=== PATIENT | male | born 1945 | race Caucasian/White ===

== ENCOUNTER → 2023-12-13 06:30 | Day surgery (SDC) | payer MEDICARE, SELFPAY | LOC: GI 06:30 | PROVIDERS: ATTENDING PHYSICIAN Internal Medicine Gastroenterology | DX: Z12.11 Encounter for screening for malignant neoplasm of colon (principal); D12.3 Benign neoplasm of transverse colon; K57.30 Diverticulosis of large intestine without perforation or abscess without bleeding; K64.8 Other hemorrhoids | CPT/HCPCS: 45385; 88305 ==

== ENCOUNTER 2023-12-28 11:54 | Emergency (ER) | payer MEDICARE, SELFPAY ==
[2023-12-28 12:01] VITALS: BP 161/93
--- NOTE | 2023-12-28 12:34 | ED.MUSCINJ ---
HPI-Injury
General
Chief Complaint: Musculo-Skeletal Complaint
Source: patient
Exam Limitations: none
Time Seen by Provider: 12/28/23 12:16
Travel History
Have you had any contact with someone who has COVID-19?: No
Do you have any symptoms of coronavirus? Fever > 100 degrees, chills, cough, shortness of breath, sore throat, loss of taste or smell, muscle aches, or headache?: No
History of Present Illness-Injury
Initial Injury comments:
78-year-old male not anticoagulated presents complaining of right knee discomfort after tripping and falling on his right knee getting out of bed. He did not hit his head no other injuries. No other complaints at this time
Past History
Past History
ED Past Medical History: Cancer (Prostate) and GERD; Negative CVA, HTN, Hypercholesterolemia, NIDDM, [place] or Hypothyroidism
ED Past Surgical History: Urological and Other (Hernia repair)
Social History
Tobacco: Non-smoker
Alcohol: Occasional
Personal:
Living: with family
Employment: Retired
Family History
Family History: Other (Noncontributory)
Phy Exam
Physical Exam
Physical Exam:
General: Well-appearing male no acute distress
HEENT: Normocephalic atraumatic
Musculoskeletal exam: Right knee tender anteriorly. There is prepatellar swelling no break in the skin no deformity. He has ability straight leg raise flexion is beyond 90 degrees knee is stable without deformities
Neurologic: Alert normal gait
Injury Course
Orders/Labs/Results
Orders:
Orders
12/28/23 12:11
Knee, Right 4 or More Views [CR Knee- Right 4 Or More View*] Urgent
Comment:
Reason For Exam: pain after injury
MDM/Problems Addressed
Differential Diagnosis Includes:
Mechanical fall with right knee pain. Consider contusion versus hematoma versus fracture
I have personally visualized x-rays of the right knee which are negative for acute fracture or dislocation. I suspect hematoma of the skin or prepatellar bursa. There is no intra-articular effusion. Stable for discharge.
*Critical Care Note
Total Time (30-74mins, 75-104mins- exclusive of procedures): Not Applicable
ED Attending Note
-
Portions of this chart may have been created with voice recognition software.� Occasional wrong word or��sound alike� substitutions may have occurred due to the inherent limitations of voice recognition software.
Discharge Plan
Departure
Patient Disposition: Home (Routine Discharge)
Date of Disposition: 12/28/23
Time of Disposition: 12:36
Patient with high blood pressure during this ER visit?: No
Discharge Problem:
Contusion
Instructions: Contusion (DC)
Prescriptions:
No Action
Prozac: Capsule
30 mg PO DAILY
Patient Comments:
one 10 mg tablet and one 20 mg tablet
famotidine [Acid Controller] 20 MG tablet
20 mg PO DAILY
Referrals:
Andrea Hoffman MD [Family Provider] -
Activity Restrictions/Additional Instructions:
Ice for swelling. Use ibuprofen or Tylenol for pain if needed peer return if worse otherwise consider following up with orthopedist
Interventions
Interventions:
*Neglect/Abuse Screening Last Done: 12/28/23 12:38
*Nursing Disposition Last Done: 12/28/23 12:53
ED-Musculoskeletal Assessment Last Done: 12/28/23 12:38
Discharge Date and Time
Discharge Date/Time: 12/28/23 12:53
== END 2023-12-28 12:53 | disposition home or self-care (01) ==
LOC: EMR 11:54
PROVIDERS: EMERGENCY PHYSICIAN Emergency Medicine; FAMILY PHYSICIAN Family Medicine
DX: M25.561 Pain in right knee (principal); W01.0XXA Fall on same level from slipping, tripping and stumbling without subsequent striking against object, initial encounter; K21.9 Gastro-esophageal reflux disease without esophagitis
CPT/HCPCS: 99283; 73564

== ENCOUNTER → 2024-04-04 13:27 | Outpatient (REF) | payer MEDICARE, SELFPAY | LOC: RCS 13:27 | PROVIDERS: ATTENDING PHYSICIAN Internal Medicine Interventional Cardiology; FAMILY PHYSICIAN Family Medicine | DX: I10 Essential (primary) hypertension (principal); R06.09 Other forms of dyspnea | CPT/HCPCS: 93017; 93350 ==

== ENCOUNTER → 2024-08-01 10:01 | Outpatient (REF) | payer MEDICARE, SELFPAY | LOC: WDC 10:01 | PROVIDERS: ATTENDING PHYSICIAN Family Medicine | DX: N64.4 Mastodynia (principal) | CPT/HCPCS: 76642; 77062; 77066 ==

== ENCOUNTER 2025-08-24 08:35 | Emergency (ER) | payer MEDICARE, SELFPAY ==
[2025-08-24 08:39] VITALS: BP 170/83
[2025-08-24 09:04] VITALS: BMI 38.7
[2025-08-24 09:06] VITALS: BP 132/117
--- NOTE | 2025-08-24 09:32 | ED.GENMED ---
History of Present Illness
General
Chief Complaint: Heart Rate Problem
Source: patient and spouse
Exam Limitations: none
Time Seen by Provider: 08/24/25 09:00
Nursing documentation reviewed up to this point in time: agreed with
History of Present Illness
History of Present Illness:
79-year-old male presents with irregular heartbeat onset a few hours ago with a bed last night feeling fine drinks socially not excess non-smoker has prostate cancer no history of arrhythmia tells me he is always wonder if his thyroid is abnormal
because he has short eyebrows and he was told that this correlates with hypothyroid does have a family history of thyroid issues, describes some pressure into his neck, no nausea no vomiting no diaphoresis
Past History
Past History
ED Past Medical History: Cancer (Prostate) and GERD; Negative CVA, HTN, Hypercholesterolemia, NIDDM, [place] or Hypothyroidism
ED Past Surgical History: Urological and Other (Hernia repair)
Social History
Tobacco: Non-smoker
Alcohol: Occasional
Personal:
Living: with family
Employment: Retired
Family History
Family History: Other (Noncontributory)
Phy Exam
Physical Exam
Physical Exam:
Physical Exam
General: no apparent distress, not acutely ill
Neck: No goiter no stridor
Heart: s1/s2 regular rate and rhythm, no murmur. equal radial pulses.
Lungs: no acute respiratory distress. clear bilaterally
Abdomen: Nontender
Neuro: alert and oriented. no focal neurological deficits
Skin: no rash
Psychiatric: well kept. interactive and cooperative
Extremities: no edema. no calf tenderness.
Course
Orders/Labs/Results
Orders:
Orders
08/24/25 08:37
Electrocardiogram (*1) Urgent
Reason for Study: Tachycardia
EKG- Treatment ONCE
08/24/25 09:08
Electrocardiogram (*1) Stat
Reason for Study: Other
Other Reason for Exam: chest pain
Cardiac Monitoring- Treatment ONCE
EKG- Treatment ONCE
08/24/25 09:10
Complete Blood Count/With Diff Urgent
Comprehensive Metabolic Panel Urgent
Magnesium Urgent
TSH Urgent
Troponin I Urgent
08/24/25 11:22
Troponin I Urgent
Abnormal Lab Results
08/24/25
09:10
MPV 10.5 H fL
(7.4-10.4)
08/24/25 09:10
08/24/25 09:10
Vital Signs
Initial and Last Documented VS:
Initial Vital Signs
Temp Pulse Resp BP Pulse Ox
97.7 F 66 18 170/83 99
08/24/25 08:39 08/24/25 08:39 08/24/25 08:39 08/24/25 08:39 08/24/25 08:39
Last Documented Vital Signs
Temp Pulse Resp BP Pulse Ox
97.7 F 56 14 144/84 97
08/24/25 08:39 08/24/25 10:00 08/24/25 10:00 08/24/25 10:00 08/24/25 10:00
MDM/Problems Addressed
Differential Diagnosis Includes:
Arrhythmia PVCs PACs symptomatic thyroid
*Pulse Oximetry
SaO2: 99
Oxygen Mode of Delivery: Room air
Patient hypoxic: no
*EKG
Interpreted by ED Provider?: Yes
Interpretation: normal
Comparison EKG: no comparison EKG present
Heart Rate: 78
Rate: normal
Rhythm: sinus
Ischemia: no ischemia
*Screener Operator Interpretation
Rate: normal
Interpretation: normal
Heart Rate: 78
Rhythm: PVC's
*Critical Care Note
Total Time (30-74mins, 75-104mins- exclusive of procedures): Not Applicable
Update Note
Update Note:
12 noon update patient feeling fine, labs noted will repeat his troponin
ED Attending Note
-
Portions of this chart may have been created with voice recognition software.� Occasional wrong word or��sound alike� substitutions may have occurred due to the inherent limitations of voice recognition software.
Discharge Plan
Departure
Prescriptions:
No Action
sildenafil 50 mg Tablet
50 mg PO DAILY
Theragran Tablet
1 tab PO DAILY
calcium carbonate [Calcarb 600] 600 mg calcium (1,500 mg) Tablet
600 mg PO DAILY
omeprazole 20 mg Capsule,Delayed Release(Dr/Ec)
20 mg PO DAILY
magnesium 200 mg Tablet
400 mg PO DAILY
coenzyme Q10 [CoQ-10] 100 mg Capsule
200 mg PO DAILY
Glucosamine Chondroitin 550-30-1 mg Capsule
1 cap PO DAILY
Referrals:
Andrea Hoffman MD [Family Provider, Family Practice]
Interventions
Interventions:
*Risk Screen - Suicide Last Done: 08/24/25 08:38
*General Assessment Last Done: 08/24/25 09:07
*Neglect/Abuse Screening Last Done: 08/24/25 08:43
*ED- Fall Risk Assessment Last Done: 08/24/25 09:07
*ED COVID-19 Vaccine History Last Done: 08/24/25 09:07
*ED Influenza Vaccine History Last Done: 08/24/25 09:07
ED- Cardiac Assessment Last Done: 08/24/25 09:04
ED- Pulmonary Assessment Last Done: 08/24/25 09:04
Discharge Date and Time
Print Language: SAMI
[2025-08-24 09:34] LABS: Hematocrit 41.0 % (39.0-52.0); Hemoglobin 14.4 g/dL (13.0-18.0); Mean Corp Hgb Conc. 35.1 g/dL (33.0-37.0); Mean Corpuscular Volume 83.0 fL (80.0-94.0); Nucleated Red Blood Cells % 0 % (-); Platelet Count 193 10^3/uL (130-400); Red Cell Dist. Width 14.4 % (11.5-14.5)
[2025-08-24 09:47] LABS: ALT (SGPT) 27 U/L (0-50); AST (SGOT) 27 U/L (17-59); Albumin 4.5 g/dl (3.5-5.0); Alkaline Phosphatase 69 U/L (38-126); Blood Urea Nitrogen 15 mg/dl (9-20); Calcium 9.3 mg/dl (8.4-10.2); Carbon Dioxide 25 mmol/L (22-30); Chloride 105 mmol/L (98-107); Estimated Creatinine Clearance 67 ml/min; Glucose 97 mg/dl (70-99); Magnesium 2.2 mg/dl (1.6-2.3); Potassium 4.0 mmol/L (3.5-5.1); Sodium 135 mmol/L (135-145); Total Protein 7.6 g/dl (6.3-8.2); eGFR > 60.00
[2025-08-24 09:58] LABS: Troponin I 0.014 ng/ml
[2025-08-24 10:00] VITALS: BP 144/84
[2025-08-24 10:17] LABS: TSH 3.25 uIU/ml (0.47-4.68)
[2025-08-24 11:00] VITALS: BP 146/87
[2025-08-24 12:29] LABS: Troponin I < 0.012 ng/ml
== END 2025-08-24 13:24 | disposition home or self-care (01) ==
LOC: EMR 08:35
PROVIDERS: EMERGENCY PHYSICIAN Emergency Medicine; FAMILY PHYSICIAN Family Medicine
DX: R00.2 Palpitations (principal); K21.9 Gastro-esophageal reflux disease without esophagitis; C61 Malignant neoplasm of prostate
CPT/HCPCS: 99283; 80053; 83735; 84443; 84484; 85025; 93005